=== PATIENT | male | born 1945 ===

== ENCOUNTER 2017-06-10 13:49 | Emergency (ER) | payer MEDICARE, BC ==
[2017-06-10 14:02] VITALS: BP 151/74
--- NOTE | 2017-06-10 14:17 | EDM.PDOC ---
ED HPI GENERAL MEDICAL PROBLEM - General Chief Complaint: Genitourinary Problem Stated Complaint: POSS PROSTRATE INFECTION Time Seen by Provider: 06/10/17 13:57 Source of Information: Reports: Patient History Limitations: Reports: No Limitations - History of Present Illness INITIAL COMMENTS - FREE TEXT/NARRATIVE: The patient is a 71-year-old male with a chief complaint of difficulty urinating. He states that he's been feeling ill for a few days. He's had some nausea and chills and dysuria and frequency. He was checked a few days ago and found to have a urinary infection and placed on Levaquin. He has been taking this. He felt like he was getting better but today was having difficulty urinating and frequency. No fever today. His white blood cell count at clinic was checked and was initially 16,000, it is now improved to 11,000 per patient report. He has some abdominal discomfort and feels like his belly is distended. He is also nauseated and hasn't really been able to eat today. He is only been able to urinate very small amounts throughout the day. No bowel movement abnormalities. No gross hematuria but he has had microscopic hematuria. No fever today. No vomiting today. Lower Abdomen Pain Score (Numeric/FACES): 8 - Related Data Allergies Allergy/AdvReac Type Severity Reaction Status Date / Time No Known Allergies Allergy Verified 06/10/17 14:01 Home Meds: Home Meds Finasteride 5 mg PO DAILY 05/20/16 [History] Rosuvastatin Calcium [Crestor] 10 mg PO DAILY 05/20/16 [History] Rosuvastatin [Crestor] 5 mg PO DAILY 05/20/16 [History] traMADol Hcl/Acetaminophen [Ultracet Tablet] 1 tab PO ASDIRECTED PRN 05/20/16 [ History] Acetaminophen/oxyCODONE [Percocet 325-5 MG] 1 - 2 tab PO Q6H PRN #40 tablet [Rx] Cyclobenzaprine [Flexeril] 10 mg PO Q8H PRN #40 tablet 05/21/16 [Rx] Past Medical History Cardiovascular History: Reports: Hypertension Other Cardiovascular History: states H/O rheumatic fever Respiratory History: Reports: SOB Gastrointestinal History: Reports: GERD, Other (See Below) Other Gastrointestinal History: perforated cecum Other Neuro History: Rt. Leg numbness/pain occ. - Past Surgical History Musculoskeletal Surgical History: Reports: Knee Replacement Social & Family History - Tobacco Use Smoking Status *Q: Never Smoker Used Tobacco, but Quit: Yes Second Hand Smoke Exposure: No - Caffeine Use Caffeine Use: Reports: Coffee - Recreational Drug Use Recreational Drug Use: No Drug Use in Last 12 Months: No ED ROS GENERAL - Review of Systems Review Of Systems: See Below Constitutional: Reports: Malaise. Denies: Fever Cardiovascular: Reports: No Symptoms GI/Abdominal: Reports: Abdominal Pain, Nausea : Reports: Dysuria, Urinary Retention ED EXAM, RENAL/ - Physical Exam Exam: See Below Exam Limited By: No Limitations General Appearance: Alert, Mild Distress Eye Exam: Bilateral Eye: Normal Inspection Ears: Normal External Exam Nose: Normal Inspection Throat/Mouth: Normal Inspection Head: Atraumatic, Normocephalic Respiratory/Chest: No Respiratory Distress, Lungs Clear, Normal Breath Sounds Cardiovascular: Normal Peripheral Pulses, Regular Rate, Rhythm, No Murmur GI/Abdominal: Other (Mildly distended, diffuse mild tenderness, no rebound or guarding) Back Exam: Normal Inspection. No: CVA Tenderness (L), CVA Tenderness (R) Extremities: Normal Inspection Neurological: Alert, Oriented, Normal Cognition, No Motor/Sensory Deficits Psychiatric: Normal Affect, Normal Mood Skin Exam: Warm, Dry, Intact, Normal Color, No Rash Course - Vital Signs Last Recorded V/S: Last Vital Signs Temp 36.3 C 06/10/17 13:57 Pulse 70 06/10/17 13:57 Resp 16 06/10/17 13:57 BP 151/74 H 06/10/17 13:57 Pulse Ox - Orders/Labs/Meds Orders: Active Orders 24 hr Category Date Time Status Insert Urinary Catheter [OM.PC] Q24H Care 06/10/17 14:15 Ordered Peripheral IV Care [RC] . DIRECTED Care 06/10/17 16:01 Active Urinary Catheter Assessment [RC] ASDIRECTED Care 06/10/17 14:06 Active Abdomen Series w Chest 1V [CR] Stat Exams 06/10/17 16:00 Taken CULTURE URINE [RM] Stat Lab 06/10/17 14:50 Received Sodium Chloride 0.9% [Saline Flush] Med 06/10/17 16:01 Active 10 ml FLUSH ASDIRECTED PRN Blood Culture x2 Reflex Set [OM.PC] Stat Oth 06/10/17 17:32 Ordered Peripheral IV Insertion Adult [OM.PC] Routine Ot 06/10/17 16:01 Ordered Medication Orders Sodium Chloride (Saline Flush) 10 ml FLUSH ASDIRECTED PRN PRN Reason: Keep Vein Open Last Admin: 06/10/17 17:55 Dose: 10 ml Admin: 06/10/17 16:31 Dose: 10 ml Labs: Laboratory Tests 06/10/17 06/10/17 06/10/17 Range/Units 14:25 14:25 14:25 WBC 10.41 H (4.23-9.07) K/mm3 RBC 4.67 (4.63-6.08) M/mm3 Hgb 13.1 L (13.7-17.5) gm/L Hct 39.7 L (40.1-51.0) % MCV 85.0 (79.0-92.2) fl MCH 28.1 (25.7-32.2) pg MCHC 33.0 (32.2-35.5) g/dl RDW Std Deviation 37.7 (35.1-43.9) fL Plt Count 228 (163-337) K/mm3 MPV 9.2 L (9.4-12.3) fl Neut % (Auto) 75.8 H (34.0-67.9) % Lymph % (Auto) 13.0 L (21.8-53.1) % [place] % (Auto) 10.3 (5.3-12.2) % Eos % (Auto) 0.4 L (0.8-7.0) Baso % (Auto) 0.2 (0.1-1.2) % Neut # (Auto) 7.90 H (1.78-5.38) K/mm3 Lymph # (Auto) 1.35 (1.32-3.57) K/mm3 [place] # (Auto) 1.07 H (0.30-0.82) K/mm3 Eos # (Auto) 0.04 (0.04-0.54) K/mm3 Baso # (Auto) 0.02 (0.01-0.08) K/mm3 Manual Slide Review Not Reportable Sodium 139 (136-145) mEq/L Potassium 4.4 (3.5-5.1) mEq/L Chloride 103 (98-107) mEq/L Carbon Dioxide 29 (21-32) mEq/L Anion Gap 11.4 (5-15) BUN 15 (7-18) mg/dL Creatinine 0.9 (0.7-1.3) mg/dL Est Cr Clr Drug Dosing 83.83 mL/min Estimated GFR (MDRD) > 60 (>60) mL/min BUN/Creatinine Ratio 16.7 (14-18) Glucose 197 H (80-115) mg/dL Calcium 9.3 (8.5-10.1) mg/dL Total Bilirubin 0.3 (0.2-1.0) mg/dL AST 15 (15-37) U/L ALT 17 (16-63) U/L Alkaline Phosphatase 59 (46-116) U/L Total Protein 7.6 (6.4-8.2) g/dl Albumin 3.1 L (3.4-5.0) g/dl Globulin 4.5 gm/dL Albumin/Globulin Ratio 0.7 L (1-2) Lipase 88 (73-393) U/L Urine Color (Yellow) Urine Appearance (Clear) Urine pH (5.0-8.0) Ur Specific [place] (1.005-1.030) Urine Protein (Negative) Urine Glucose (UA) (Negative) Urine Ketones (Negative) Urine Occult Blood (Negative) Urine Nitrite (Negative) Urine Bilirubin (Negative) Urine Urobilinogen (0.2-1.0) Ur Leukocyte Esterase (Negative) Urine RBC (0-5) /hpf Urine WBC (0-5) /hpf Ur Epithelial Cells (0-5) /hpf Urine Bacteria (FEW) /hpf Urine Mucus (FEW) /hpf 06/10/17 Range/Units 14:50 WBC (4.23-9.07) K/mm3 RBC (4.63-6.08) M/mm3 Hgb (13.7-17.5) gm/L Hct (40.1-51.0) % MCV (79.0-92.2) fl MCH (25.7-32.2) pg MCHC (32.2-35.5) g/dl RDW Std Deviation (35.1-43.9) fL Plt Count (163-337) K/mm3 MPV (9.4-12.3) fl Neut % (Auto) (34.0-67.9) % Lymph % (Auto) (21.8-53.1) % [place] % (Auto) (5.3-12.2) % Eos % (Auto) (0.8-7.0) Baso % (Auto) (0.1-1.2) % Neut # (Auto) (1.78-5.38) K/mm3 Lymph # (Auto) (1.32-3.57) K/mm3 [place] # (Auto) (0.30-0.82) K/mm3 Eos # (Auto) (0.04-0.54) K/mm3 Baso # (Auto) (0.01-0.08) K/mm3 Manual Slide Review Sodium (136-145) mEq/L Potassium (3.5-5.1) mEq/L Chloride (98-107) mEq/L Carbon Dioxide (21-32) mEq/L Anion Gap (5-15) BUN (7-18) mg/dL Creatinine (0.7-1.3) mg/dL Est Cr Clr Drug Dosing mL/min Estimated GFR (MDRD) (>60) mL/min BUN/Creatinine Ratio (14-18) Glucose (80-115) mg/dL Calcium (8.5-10.1) mg/dL Total Bilirubin (0.2-1.0) mg/dL AST (15-37) U/L ALT (16-63) U/L Alkaline Phosphatase (46-116) U/L Total Protein (6.4-8.2) g/dl Albumin (3.4-5.0) g/dl Globulin gm/dL Albumin/Globulin Ratio (1-2) Lipase (73-393) U/L Urine Color Yellow (Yellow) Urine Appearance Clear (Clear) Urine pH 7.0 (5.0-8.0) Ur Specific [place] > or = 1.030 (1.005-1.030) Urine Protein 2+ H (Negative) Urine Glucose (UA) Negative (Negative) Urine Ketones Negative (Negative) Urine Occult Blood 2+ H (Negative) Urine Nitrite Negative (Negative) Urine Bilirubin Negative (Negative) Urine Urobilinogen 0.2 (0.2-1.0) Ur Leukocyte Esterase Negative (Negative) Urine RBC 5-10 H (0-5) /hpf Urine WBC 0-5 (0-5) /hpf Ur Epithelial Cells 5-10 H (0-5) /hpf Urine Bacteria Rare (FEW) /hpf Urine Mucus Few (FEW) /hpf Meds: Medications Generic Name Dose Route Start Last Admin Trade Name Lilliam PRN Reason Stop Dose Admin Sodium Chloride 10 ml 06/10/17 16:01 06/10/17 17:55 Saline Flush FLUSH 10 ml ASDIRECTED PRN Administration Keep Vein Open Discontinued Medications Generic Name Dose Route Start Last Admin Trade Name Freisabel PRN Reason Stop Dose Admin Diatrizoate Meglum/Diatrizoate Sod 90 ml 06/10/17 16:54 06/10/17 17:55 Gastrografin 37% PO 06/10/17 16:55 90 ml ONETIME ONE Administration Sodium Chloride 1,000 mls @ 1,000 mls/hr 06/10/17 16:01 06/10/17 16:30 Normal Saline IV 06/10/17 17:00 1,000 mls/hr ONETIME ONE Administration Sodium Chloride 1,000 mls @ 1,000 mls/hr 06/10/17 17:31 06/10/17 17:41 Normal Saline IV 06/10/17 18:30 1,000 mls/hr ONETIME ONE Administration Iopamidol 125 ml 06/10/17 16:54 06/10/17 17:55 Isovue-300 (61%) IVPUSH 06/10/17 16:55 125 ml ONETIME ONE Administration Ketorolac Tromethamine 30 mg 06/10/17 17:31 06/10/17 17:38 Toradol IVPUSH 06/10/17 17:32 30 mg ONETIME ONE Administration Lidocaine HCl 10 ml 06/10/17 14:21 06/10/17 14:41 Xylocaine 2% Jelly MUCMEM 06/10/17 14:22 10 ml ONETIME ONE Administration Ondansetron HCl 4 mg 06/10/17 16:01 06/10/17 16:30 Zofran IVPUSH 06/10/17 16:02 4 mg ONETIME ONE Administration Ondansetron HCl 4 mg 06/10/17 17:31 06/10/17 17:37 Zofran IVPUSH 06/10/17 17:32 4 mg ONETIME ONE Administration Sodium Chloride 10 ml 06/10/17 16:54 06/10/17 18:25 Saline Flush FLUSH 06/10/17 16:55 10 ml ONETIME ONE Administration - Re-Assessments/Exams Free Text/Narrative Re-Assessment/Exam: 06/10/17 16:58 Fully catheter placed but there was not a large amount of output, see nursing notes for details. Urine shows no sign of infection today, antibiotic appears to be effective. Per patient's provider, there is no culture result available from urine sent earlier this week. Levaquin is presumably working so we'll keep patient on that. However upon reevaluation he continues to have mildly distended belly and diffuse tenderness. The Cheung does seem to be draining, this does not seem to be the explanation for patient's symptoms. We'll obtain imaging and reassess. Labs otherwise unremarkable. 06/10/17 18:52 CT scan shows mildly enlarged prostate, otherwise no acute abnormality. Cheung catheter is in place in the bladder. Discussed this result with the patient. He is feeling better after Toradol. He has not had any vomiting here. It appears that his antibiotic is effective. Encouraged him to continue that. He is already on finasteride. He has a urologist, discussed catheter care and need for follow-up. Discussed strict return precautions for any worsening abdominal pain or other concerning symptoms. Departure - Departure Time of Disposition: 18:44 Disposition: Home, Self-Care 01 Clinical Impression: Prostatitis, Retention of urine - Discharge Information Instructions: Prostatitis, Acute Urinary Retention, Male Referrals: Tato Schmidt PA-C [Primary Care Provider] - Forms: ED Department Discharge Additional Instructions: 1. Follow up with Dr. Velazquez next week for catheter removal 2. Continue levaquin for your prostate infection 3. OK to take ibuprofen and/or acetaminophen (Tylenol) as needed for pain 4. Return to the ED for a recheck if you have worsening abdominal pain, vomiting, fever, or any other concerning symptoms - My Orders Last 24 Hours: My Active Orders 06/10/17 14:06 Urinary Catheter Assessment [RC] ASDIRECTED 06/10/17 14:15 Insert Urinary Catheter [OM.PC] Q24H 06/10/17 14:50 CULTURE URINE [RM] Stat 06/10/17 16:00 Abdomen Series w Chest 1V [CR] Stat 06/10/17 16:01 Peripheral IV Care [RC] . DIRECTED Sodium Chloride 0.9% [Saline Flush] 10 ml FLUSH ASDIRECTED PRN Peripheral IV Insertion Adult [OM.PC] Routine 06/10/17 17:32 Blood Culture x2 Reflex Set [OM.PC] Stat - Assessment/Plan Last 24 Hours: My Active Orders 06/10/17 14:06 Urinary Catheter Assessment [RC] ASDIRECTED 06/10/17 14:15 Insert Urinary Catheter [OM.PC] Q24H 06/10/17 14:50 CULTURE URINE [RM] Stat 06/10/17 16:00 Abdomen Series w Chest 1V [CR] Stat 06/10/17 16:01 Peripheral IV Care [RC] . DIRECTED Sodium Chloride 0.9% [Saline Flush] 10 ml FLUSH ASDIRECTED PRN Peripheral IV Insertion Adult [OM.PC] Routine 06/10/17 17:32 Blood Culture x2 Reflex Set [OM.PC] Stat
[2017-06-10] MEDS ORDERED: Lidocaine 2% Jelly 10 ML Urojet MUCMEM ONE (14:21)
[2017-06-10] MEDS ORDERED: Sodium Chloride 0.9% 1,000 ML IV ONE ×2 (16:01→17:31)
[2017-06-10] MEDS ORDERED: Ondansetron 4 MG/2 ML SDV IVPUSH ONE ×2 (16:01→17:31)
[2017-06-10] MEDS: Sodium Chloride 0.9% 10 ML Syringe FLUSH PRN ×2 (16:31→17:55)
[2017-06-10] MEDS ORDERED: Iopamidol 612 MG/ML 150 ML Bottle IVPUSH ONE (16:54)
[2017-06-10] MEDS ORDERED: Diatrizoate Meglumine/Diatrizoate Sodium 37% 120 ML Bottle PO ONE (16:54)
[2017-06-10] MEDS ORDERED: Sodium Chloride 0.9% 10 ML Syringe FLUSH ONE (16:54)
[2017-06-10] MEDS ORDERED: Ketorolac 30 MG/ML SDV IVPUSH ONE (17:31)
--- NOTE | 2017-06-10 18:25 | CT ---
CT abdomen and pelvis Technique: Multiple axial sections were obtained from above the dome of the diaphragm inferiorly through the pubic symphysis. Intravenous and oral contrast was utilized. Delayed images were also obtained through the bladder. Comparison: No previous abdominal imaging. Findings: Visualized lung bases shows nothing acute. Liver shows no focal parenchymal abnormality. Spleen appears within normal limits. Adrenal glands show no nodule. Pancreas is within normal limits. Gallbladder shows no gallstones. Aorta shows atherosclerotic change without aneurysmal dilatation. Kidneys show symmetric contrast enhancement. Delayed images shows contrast within the distal ureters and bladder. Prostate gland is mildly enlarged. Cheung catheter is in place within the bladder. Delayed images shows contrast within the bladder. No pelvic mass or adenopathy is seen. Mild diverticuli are seen within the sigmoid and descending colon. No inflammatory change is seen to indicate diverticulitis. Appendix is not visualized with certainty. Bone window settings were reviewed which shows vacuum disc phenomenon disc space narrowing at L3-L4 through L5-S1. Impression: 1. Incidental findings as noted above. Nothing acute is appreciated on CT study of the abdomen and pelvis. Diagnostic code #2
--- NOTE | 2017-06-11 07:16 | CR ---
Abdominal series: Supine and upright views of the abdomen were obtained as well as frontal view of the chest. Comparison: No previous study. Heart size is normal. Tortuous thoracic aorta is seen. Lungs are clear. Slightly prominent gas within small bowel is seen which is within normal limits on subsequent CT abdomen and pelvis study performed on the same day. Calcifications are seen within the pelvis compatible phleboliths. Impression: 1. Nonspecific abdominal series. Incidental findings. Diagnostic code #2
== END 2017-06-10 19:13 | disposition home or self-care (01) ==
LOC: JD.ED 13:49
DX: N41.9 Inflammatory disease of prostate, unspecified (principal); R33.9 Retention of urine, unspecified; I10 Essential (primary) hypertension; K21.9 Gastro-esophageal reflux disease without esophagitis; Z96.659 Presence of unspecified artificial knee joint; Z87.891 Personal history of nicotine dependence; Z79.899 Other long term (current) drug therapy
CPT/HCPCS: 36415; 51702; 74022; 74177; 80053; 81001; 83690; 85025; 87086; 96361; 96374; 96375; 96376; 99284; J1885; J2405; J7040; J7050; Q9963; Q9967